=== PATIENT | female | born 2005 | race Caucasian/White ===

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

== ENCOUNTER 2025-10-07 12:28 | Emergency (ER) | payer BC, MEDICAID, SELFPAY ==
--- OUTSIDE RECORDS SUMMARY | 2025-10-05 06:37 | XMS_ITS | Encounter Summary ---
Author Organization [facility] Address [address] [place] [address] Care Team Providers Care Note Specialist Name Role Phone Tatiana Barahona MD Primary Care Provider Reason for Visit * Reason Comments Dental Pain Ear Pain Encounter Details Date Type Department Care Team (Late st Contact Info) Description 10/05/2025 6:37 AM DERMATOPATHOLOGIST - 10/05/2025 7:20 AM [facility] Emergency [facility] Emergency Medicine [address] [place] [address] Hua Walker, DO [address] [place] [address] Dental abscess (Primary Dx) Discharge Disposition: Home or Self Care Social History Tobacco Use Types Packs/Day Years Used Date Smoking Tobacco: Former Cigarettes Passive Smoke Exposure: Yes Smokeless Tobacco: Never Alcohol Use Standard Drinks/Week Comments Not Currently 0 (1 standard drink = 0.6 oz pur e alcohol) per weekend Feeling Safe Answer Date Recorded Within the last year, have y ou been afraid of your partner or ex-partner? No 08/13/2020 Within the last year, have y ou been humiliated or emotionally abused in other ways by your partner or ex-partner? No Within the last year, have y ou been kicked, hit, slapped, or otherwise physically hurt by your partner or ex-partner? No 08/13/2020 Within the last year, have y ou been raped or forced to have any kind of sexual activity by your partner or ex-partner? No 08/13/2020 Financial Resource Strain Answer Date R ecorded How hard is it for you to pa y for the very basics like food, housing, medical care, and heating? Not hard at all 08/13/2020 Food Insecurity Answer Date Recorded Within the past 12 months, y ou worried that your food would run out before you got the money to buy more. Never true 08/13/20 20 Within the past 12 months, t he food you bought just didn't last and you didn't have money to get more. Never true 08/13/2020 Transportation Needs Answer Date Record ed In the past 12 months, has l ack of transportation kept you from medical appointments or from getting medications? Yes 02/2020 In the past 12 months, has l ack of transportation kept you from meetings, work, or from getting things needed for daily living? Yes 08/13/2020 Food Insecurity Answer Date Recorded Do you find you are eating l ess than you should because you can t pay for food? No 10/05/2025 Transportation Needs Answer Date Record ed Have you gone without health care because you didn t have a way to get there? Or worry about transportation for future doctor visits, picker machine operator medication, etc.? No 2024 Housing Stability Answer Date Recorded Do you worry you won t have a steady place to sleep or struggle to pay rent or mortgage? No 10/05/2025 Utility Needs Answer Date Recorded Do you have difficulty payin g for utility costs (electric, water or gas bills)? No 10/05/2025 Medication Needs Answer Date Recorded Have you skipped taking medi cation due to cost or worry you can t afford new medications? No 10/05/2025 Feeling Safe Answer Date Recorded Are you in a relationship wi th someone who hurts you emotionally and/or physically? No 10/05/2025 Comments No Sex and Gender Information Value Date Recorded Sex Assigned at Not on file Legal Sex Female 12:59 PM DERMATOPATHOLOGIST Gender Identity Not on file Sexual Orientation Not on file documented as of this encounter Last Filed Vital Signs Vital Sign Reading Time Taken Comments Blood Pressure 94/66 10/05/2025 7:00 AM DERMATOPATHOLOGIST Pulse 51 10/05/2025 7:00 AM DERMATOPATHOLOGIST Temperature 36.4 C (97.5 F) 10/05/2025 6:38 AM DERMATOPATHOLOGIST Respiratory Rate 18 10/05/2025 6:38 AM DERMATOPATHOLOGIST Oxygen Saturation 98% 10/05/2025 7:00 AM DERMATOPATHOLOGIST Inhaled Oxygen Concentration - - Weight 81.5 kg (179 lb 9.6 oz) 10/05/2025 6:38 A M DERMATOPATHOLOGIST Height 165.1 cm (5' 5 ) 10/05/2025 6:38 AM DERMATOPATHOLOGIST Body Mass Index 29.89 10/05/2025 6:38 AM DERMATOPATHOLOGIST documented in this encounter Functional Status * Functional Assessment Question Answer Date of Assessment Author Ambulation independent 10/05/2025 6:44 AM Meli Poon RN Transferring independent 10/05/2025 6:44 AM Meli Poon RN Toileting independent 10/05/2025 6:44 AM Meli Poon RN * Patient Safety Question Answer Date of Assessment Author Armband, In Place/Activated Identification;Aller gy 10/05/2025 6:44 AM Meli Garza RN * ED Fall Risk Assessment (Yes to any risk = High Fall Risk) Question Answer Date of Assessment Author Age > 70 No 10/05/2025 6:44 AM Meli Garza RN History of Falls d/t Intrinsic Factors in Last 30 Days (visual impairment, weakness, poor coordination) No 10/05/2025 6:44 AM Meli Garza RN Altered Mental Status (Intoxicated or Confused, and Unable to Understand Fall Precautions) No 10/05/2025 6:44 AM Meli Garza RN Nursing Judgement No 10/05/2025 6:4 4 AM Meli Garza RN Impaired Mobility - Ambulates with either: assistive device, unsteady gait, unable to ambulate No 10/05/2025 6:44 AM Meli Garza RN [place] Fall Risk Interventions Stretcher in lowest position and wheels locked;Minimum of one side rail in raised position when pts are in bed, both side rails if clinically indicated;Call light is placed within reach;Keep other personal items within reach;[place] patient to environment;Keep room and unit free from clutter or spills;Educate patient and family to ask for assistance if needed when getting out of bed;Monitor patient activity after administering medications that may increase the risk for fall;Frequent rounding by Emergency Dept staff: (include the 5 P's: Pain, Potty, Positioning, Possessions and Pump (check IV site/equip) 10/05/2025 6:44 AM Meli Garza RN * Quick Assessment Question Answer Date of Assessment Author Airway Patent 10/05/2025 6:40 AM Meli Poon RN Breathing Effort Spontaneous;Non-Labored 10/05/2025 6: 40 AM Meli Garza RN Pulses Palpable Yes 10/05/2025 6:40 AM Meli Bolton RN Skin/Color Mer Rouge;Warm;Dry 10/05/2025 6:40 AM Meli Nelson RN * [place]-Suicide Severity Rating Scale (Past Month) Question Answer Date of Assessment Author 1. Have you wished you were or wished you could go to sleep and not wake up? No 10/05/2025 6:44 AM Meli Garza RN Is this encounter related to suicidal behavior/attempt? No 10/05/2025 6:44 AM Selma Garza RN 2. Have you actually had any thoughts of killing yourself? No 10/05/2025 6:44 AM Meli Garza RN 6. Have you ever done anythi ng, started to do anything, or prepared to do anything to end your life? No 10/05/2025 6:44 AM Meli Garza RN * Stroke Activation/Code Stroke Question Answer Date of Assessment Author Stroke Alert No 10/05/2025 6:40 AM Meli Poon RN * Pain Question Answer Date of Assessment Author Patient complains of pain? Yes 10/05/2025 6:38 AM Meli Garza RN Description: Quality sharp;stabbing 10/05/2025 6:38 AM Meli Garza RN Description: Frequency constant 10/05/2025 6:38 AM Meli Garza RN Location ear;teeth 10/05/2025 6:38 AM Meli Poon RN Pain Rating: Number 0-10 (rest) 7 10/05/2025 6:38 AM Meli Garza RN Pain Assessment Pain Assessment/Number Scale (0-10) 10/05/2025 6:38 AM Meli Garza RN * [place] Coma Scale Question Answer Date of Assessment Author GCS (Total) 15 10/05/2025 6:38 AM Meli Poon RN Best Eye Response 4 10/05/2025 6:38 AM Meli Garza RN Best Verbal Response 5 10/05/2025 6:38 AM C Meli Good RN Best Motor Response 6 10/05/2025 6:38 AM Meli Valenzuela RN * Pain Assessment Question Answer Date of Assessment Author Location: Orientation Left: 10/05/2025 6:38 AM Meli Garza RN Pain Management Interventions unnecessary movement avoided 10/05/2025 6:38 AM Meli Garza RN * SIRS Score Answer Date of Assessment Author 0 10/05/2025 7:11 AM DERMATOPATHOLOGIST QBatch, U ser * BEFAST Question Answer Date of Assessment Author Balance 0 10/05/2025 6:40 AM Meli Poon RN Eyes 0 10/05/2025 6:40 AM Meli Poon RN Face 0 10/05/2025 6:40 AM Meli Poon RN Arms 0 10/05/2025 6:40 AM Meli Poon RN Speech 0 10/05/2025 6:40 AM Meli Poon RN The Rest 0 10/05/2025 6:40 AM Meli Poon RN BEFAST Score Negative 10/05/2025 6:40 AM Meli Poon, NORBERTO * Suicide Risk and Interventions Answer Date of Assessment Author No Risk 10/05/2025 6:44 AM Bill Garza, NORBERTO * Suspected Infection Answer Date of Assessment Author 0 10/05/2025 7:11 AM DERMATOPATHOLOGIST QBatch, U ser * Organ Dysfunction Score Answer Date of Assessment Author 0 10/05/2025 7:11 AM DERMATOPATHOLOGIST QBatch, U ser * Sepsis Score Answer Date of Assessment Author 0 10/05/2025 7:11 AM DERMATOPATHOLOGIST QBatch, U ser * Severe Sepsis Score Answer Date of Assessment Author 0 10/05/2025 7:11 AM DERMATOPATHOLOGIST QBatch, U ser * Septic Shock Score Answer Date of Assessment Author 0 10/05/2025 7:11 AM DERMATOPATHOLOGIST QBatch, U ser * Sepsis Review Score Answer Date of Assessment Author 0 10/05/2025 7:11 AM DERMATOPATHOLOGIST QBatch, U ser * Septic Shock Criteria Answer Date of Assessment Author 0 10/05/2025 7:11 AM DERMATOPATHOLOGIST QBatch, U ser * Severe Pneumonia Score Answer Date of Assessment Author 0 10/05/2025 7:00 AM DERMATOPATHOLOGIST QBatch, U ser * Risk Management / Prevention - Hypoglycemia Question Answer Date of Assessment Author MCM Glucose Score (auto calculated) 0 10/05 7:01 AM DERMATOPATHOLOGIST QBatch, User * Adult Acuity Scoring Question Answer Date of Assessment Author Sofa Score(auto calculated) 0 10/05/2025 7: 01 AM DERMATOPATHOLOGIST QBatch, User Readmission Risk Score 0 10/05/2025 7:20 AM Liz Martin RN [id number] Score (Used for patients with atrial fibrillation) 1 10/05/2025 7:20 AM Liz Cardenas RN HAS-BLED Score (Used for pat ients with atrial fibrillation) 0 10/05/2025 7:20 AM Ben Martin RN * Functional Assessment Question Answer Date of Assessment Author Ambulation independent 10/05/2025 6:44 AM Meli Poon RN Transferring independent 10/05/2025 6:44 AM Meli Poon RN Toileting independent 10/05/2025 6:44 AM Meli Poon, NORBERTO * Patient Safety Question Answer Date of Assessment Author Armband, In Place/Activated Identification;Aller gy 10/05/2025 6:44 AM Meli Garza, NORBERTO * Stroke Activation/Code Stroke Question Answer Date of Assessment Author Stroke Alert No 10/05/2025 6:40 AM Meli Poon RN * [place] Coma Scale Question Answer Date of Assessment Author GCS (Total) 15 10/05/2025 6:38 AM Meli Poon RN Best Eye Response 4 10/05/2025 6:38 AM Meli Garza RN Best Verbal Response 5 10/05/2025 6:38 AM Meli Romero RN Best Motor Response 6 10/05/2025 6:38 AM CS Meli Callahan, NORBERTO * BEFAST Question Answer Date of Assessment Author Balance 0 10/05/2025 6:40 AM Meli Poon RN Eyes 0 10/05/2025 6:40 AM Meli Poon RN Face 0 10/05/2025 6:40 AM Meli Poon RN Arms 0 10/05/2025 6:40 AM Meli Poon RN Speech 0 10/05/2025 6:40 AM Meli Poon RN The Rest 0 10/05/2025 6:40 AM Meli Poon RN BEFAST Score Negative 10/05/2025 6:40 AM Meli Poon RN documented as of this encounter Mental Status * Patient Safety Question Answer Entry Date Author Armband, In Place/Activated Identification;Allerg y 10/05/2025 6:44 AM Meli Garza RN * Quick Assessment Question Answer Entry Date Author Level of Consciousness Awake/Alert;Orishira barbara X 4 10/05/2025 6:40 AM Meli Garza RN * [place]-Suicide Severity Rating Scale (Past Month) Question Answer Entry Date Author 1. Have you wished you were or wished you could go to sleep and not wake up? No 10/05/2025 6:44 AM Meli Garza RN Is this encounter related to suicidal behavior/attempt? No 10/05/2025 6:44 AM Selma Garza, NORBERTO 2. Have you actually had any thoughts of killing yourself? No 10/05/2025 6:44 AM Meli Garza, RN 6. Have you ever done anythi ng, started to do anything, or prepared to do anything to end your life? No 10/05/2025 6:44 AM Meli Garza, NORBERTO * Stroke Activation/Code Stroke Question Answer Entry Date Author Stroke Alert No 10/05/2025 6:40 AM Meli Poon RN * [place] Coma Scale Question Answer Entry Date Author GCS (Total) 15 10/05/2025 6:38 AM Meli Poon RN Best Eye Response 4 10/05/2025 6:38 AM Meli Garza RN Best Verbal Response 5 10/05/2025 6:[address] Meli Reaves RN Best Motor Response 6 10/05/2025 6:38 AM CS T Meli Reaves RN * BEFAST Question Answer Entry Date Author Balance 0 10/05/2025 6:40 AM Meli Poon RN Eyes 0 10/05/2025 6:40 AM Meli Poon RN Face 0 10/05/2025 6:40 AM Meli Poon RN Arms 0 10/05/2025 6:40 AM Meli Poon RN Speech 0 10/05/2025 6:40 AM Meli Poon RN The Rest 0 10/05/2025 6:40 AM Meli Poon RN BEFAST Score Negative 10/05/2025 6:40 AM Meli Poon RN * Total Answer Entry Date Author 0 10/05/2025 6:44 AM Bill Garza RN * Suicide Risk and Interventions Answer Entry Date Author No Risk 10/05/2025 6:44 AM Bill Garza RN documented in this encounter Discharge Instructions * Discharge Instructions* Hua Walker DO - 10/05/2025 7:13 AM DERMATOPATHOLOGIST Dental abscess. Please take your antibiotics. Please take them to completion. Please return if you cannot open your mouth. Please return if your face swells. Please return if you cannot swallow. Please return if you have persistent fevers. Please do not drive while taking the pain medication. Please do not take the pain medication with alcohol. ATOPATHOLOGIST * Attachments The following attachments cannot be sent through Care Everywhere. * Tooth: Abscessed (Vietnamese) documented in this encounter Medications at Time of Discharge clindamycin HCL (CLEOCIN) 300 mg Capsule Take 1 Capsule (300 mg) by mouth 3 times daily for 10 days. 30 Capsule 5 10/15/19 26 HYDROcodone-aceta minophen (NORCO) 5-325 mg tabletIndications :Dental abscess Take 1 Tablet by mouth every 6 hours as needed for Pain. Max Daily Amount: 4 Tablets 10 Tablet 5 Ethinyl Estradiol-Norelge rené 150-35 mcg/24 hr Patch Weekly PATCH Apply 1 Patch to skin as directed see administration instructions. 3 Patch 12 5 buPROPion (WELLBUTRIN) 75 mg tablet Take 75 mg by mouth 2 times daily. busPIRone (BUSPAR) 15 mg TabletIndications :Anxiety Take 1 Tablet (15 mg) by mouth 3 times daily as needed for Anxiety. 90 Tablet 1 5 tirzepatide, weight loss, (Zepbound) 2.5 mg/0.5 mL Pen InjectorIndicatio ns:Obesity (BMI 30.0-34.9) Inject 0.5 mL (2.5 mg) by subcutaneous injection every 7 days. 2 mL 2 5 polyethylene glycol 3350 (MIRALAX) 17 gram/dose PowderIndications :Chronic constipation Take 1 Scoop (17 Grams) by mouth daily. Dissolve in 8 ounces of fluid and drink entire liquid 527 Gram 1 5 orphenadrine (NORFLEX) 100 mg Extended Release tabletIndications :muscle cramps Take 1 Tablet (100 mg) by mouth 2 times daily. 10 Tablet 3 docusate sodium (COLACE) 100 mg capsuleIndication s:Chronic constipation Take 1 Capsule (100 mg) by mouth 2 times daily. 60 Capsule 1 3 FLUoxetine (PROzac) 10 mg capsuleIndication s:Anxiety state Take 1 Capsule (10 mg) by mouth daily. 30 Capsule 1 3 documented as of this encounter ED Notes * Meli Reaves RN - 10/05/2025 6:43 AM CST Mery Smith 20 y.o. female, arrived to the ED via TRANSPORTATION: private vehicle for complaints of dental pain with left ear pain, per patient was seen at dentist with in the last week and shortlyafterwards began having left upper dental pain, has appointment 10/06/25 with primary, last night left ear started hurting, rates pain 7/10 constant sharp and stabbing in left ear, slight swelling toleft cheek. Per patient took OTC ibuprofen with no relief. Chief Complaint Patient presents with Dental Pain Ear Pain . Vitals taken, patient placed on monitor, clothing removed as needed per policy, privacy provided to patient. Respiratory: WDL - Regular rhythm, symmetrical chest expansion, no dyspnea , Cardiac/Circulatory: WDL - No numbness or tingling, no chest pain , Skin: WDL - Normal color for ethnicity, skin intact, patient is Alert and Oriented x4, pain scale: 7/10, findings; bleeding: without any bleeding noted. Behavior during evaluation: appropriate. Belongings secured, patient Weapons assessment: denied possession of any weapons or firearms at this time. Patient comforted, all questions answered to the best of the staff's ability, education performed, and left patient in the room with the call light in reach, bed in lowest position, wheels locked, side rails up. ATOPATHOLOGIST * Hua Walker, - 10/05/2025 6:27 AM CST Images from the original note were not included. 10/05/25 7:10 AM HISTORY OF PRESENT ILLNESS 20-year-old female with poor dentition is here for concern of a dental abscess. She has had 1 before. She was told that she needs to have a root canal of this tooth but is unable to do so at this time. She does have a dentist in [place] but she would like to find a new dentist. She has got no fevers or bodyaches. She can open her mouth. She has some referred pain down through her jaw. Dental Pain Ear Pain PAST MEDICAL HISTORY REVIEWED MEDICAL: Patient has a past medical history of Anxiety (A year ago), GERD (gastroesophageal reflux disease),and GERD (gastroesophageal reflux disease). SURGICAL: Patient has a past surgical history that includes induced (08/2022). ALLERGIES Penicillins PHYSICAL EXAM INITIAL VS BP: 98/68 (10/05/25637), Heart Rate: 87 bpm (10/05/25637), Resp: 18 (10/05/25637), Pulse: (not recorded), Temp: 97.5 ??F (36.4 ??C) (10/05/25637), Temp src: Temporal (10/05/25637), SpO2: 98% (10/05/25637), Height: 5' 5 (165.1 cm) (10/05/25637), Weight: 81.5 kg (179 lb 9.6 oz) (10/05/25637), BMI (Calculated): (!) 29.9 (10/05/25637) Patient's last menstrual period was 08/31/2025(approximate). Physical Exam Vitals and nursing note reviewed. Constitutional: General: She is not in acute distress. Appearance: Normal appearance. She is not ill-appearing, toxic-appearing or diaphoretic. HENT: Head: Normocephalic and atraumatic. Mouth/Throat: Dentition: Abnormal dentition. Dental tenderness, dental caries and dental abscesses present. Tongue: No lesions. Tongue does not deviate from midline. Pharynx: Oropharynx is clear. Uvula midline. Tonsils: No tonsillar abscesses. Comments: Likely dental abscess with swelling of the front left incisor. She has a second tooth growing out of the same spot. She says that this has been there since she was a child and it probably needs to be removed. Cardiovascular: Rate and Rhythm: Normal rate. Pulmonary: Effort: Pulmonary effort is normal. Musculoskeletal: General: Normal range of motion. Skin: General: Skin is warm and dry. Capillary Refill: Capillary refill takes less than 2 seconds. Neurological: Mental Status: She is alert. DIAGNOSTICS LAB: No data to display RADIOLOGY: No orders to display EKG: PROCEDURES Procedures MEDICAL DECISION MAKING AND PLAN OF CARE Medical Decision Making Dental abscess. Will give her a prescription for clindamycin she has an amoxicillin allergy. There is no trismus. No Lazaro's angina. No facial swelling. No cellulitis. Will place the patient on clindamycin and give her some pain medicine to she can see a dentist. Clinical Scoring & Consults . New Prescriptions for this Encounter CLINDAMYCIN HCL (CLEOCIN) 300 MG CAPSULE Take 1 Capsule (300 mg) by mouth 3 times daily for 10 days. HYDROCODONE-ACETAMINOPHEN (NORCO) 5-325 MG TABLET Take 1 Tablet by mouth every 6 hours as needed for Pain. Max Daily Amount: 4 Tablets LAST VS BP: 98/68 (10/05/25637), Heart Rate: 87 bpm (10/05/25637), Resp: 18 (10/05/25637), Pulse: (not recorded), Temp: 97.5 ??F (36.4 ??C) (10/05/25637), Temp src: Temporal (10/05/25637), SpO2: 98% (10/05/25637) CLINICAL IMPRESSION Diagnosis Diagnosis Comment Added By Time Added Dental abscess [K04.7] Hua Walker DO 10/05/2025 7:13 AM DISPOSITION, EDUCATION AND MEDICATION RECONCILIATION Medications reconciled. See after visit summary for patient education on discharged patients. ED Disposition ED Disposition Discharge Condition Stable User Hua Walker DO Date/Time Sun Oct 05, 2025 7:13 AM Comment -- ATTESTATION STATEMENTS Diagnosis Diagnosis Comment Added By Time Added Dental abscess [K04.7] Hua Walker DO 10/05/2025 7:13 AM ATOPATHOLOGIST documented in this encounter Miscellaneous Notes * Gen AI JOSE L - GENERATIVE AI HANDOFF NOTE - 10/05/2025 9:34 AM CST ## ER_course: ## # DIAGNOSIS: Dental abscess. The patient, Mery Smith, a 20-year-old female, presented with complaints of dental pain and left ear pain. She reported a constant sharp and stabbing pain in the left ear, rated 7/10, with slight swelling to the left cheek. The patient has a history of poor dentition and was previously informed of the need for a root canal. She has no fever or body aches and can open her mouth. Examination revealed abnormal dentition with dental tenderness, caries, and abscesses, particularly swelling of the front left incisor. # During the ER visit, the patient was diagnosed with a dental abscess. There was no trismus, Lazaro's angina, facial swelling, or cellulitis noted. The patient was prescribed clindamycin due to an amoxicillin allergy and given hydrocodone-acetaminophen for pain management. ## Follow_up_orders: ## # The patient was started on new prescriptions: Clindamycin HCL (Cleocin) 300 mg capsule to be taken 1 capsule by mouth 3 times daily for 10 days, and Hydrocodone-Acetaminophen ([place]) 5-325 mg tablet to be taken 1 tablet by mouth every 6 hours as needed for pain, with a maximum daily amount of 4 tablets. # The patient is advised to follow up with a dentist for further evaluation and treatment of the dental abscess. ## Home_Situation: ## # No specific factors potentially impairing follow-up care were noted in the ER documentation. The patient arrived via private vehicle, indicating some level of transportation access. ATOPATHOLOGIST documented in this encounter Plan of Treatment Upcoming Encounters Date Type Department Care Team (Late st Contact Info) Description 10/20/2025 3:00 PM DERMATOPATHOLOGIST Office Visit [facility] [address] [place] [address] January, [facility] [address] [place] [address] documented as of this encounter Visit Diagnoses Diagnosis Dental abscess- Primary Periapical abscess without sinus documented in this encounter Care Teams Note Specialist Relationship Specialty Start Date End Date Tatiana Barahona MD [address] [address] PCP - General Family Practice 08/17/16 documented as of this encounter
--- OUTSIDE RECORDS SUMMARY | 2025-10-06 17:00 | XMS_ITS | Encounter Summary ---
Author Organization [facility] Address [address] [place] [address] Care Team Providers Care Splitting Machine Feeder Name Role Phone Tatiana Barahona MD Primary Care Provider [phone] Reason for Visit * Reason Comments Ear Pain Encounter Details Date Type Department Care Team (Late st Contact Info) Description 10/06/2025 5:00 PM ARMORED CABLE MACHINE OPERATOR Office Visit [facility] Medicine [address] [address] Starr Tobin, [facility] [address] [address] Left acute otitis media (Primary Dx); Other infective acute otitis externa of left ear Social History Tobacco Use Types Packs/Day Years [...] worry about transportation for future doctor visits, cook pickled meat medication, etc.? No 2024 Housing Stability Answer [...] on file Legal Sex Female 12:59 PM ARMORED CABLE MACHINE OPERATOR Gender Identity Not on file Sexual Orientation Not on file documented as of this encounter Last Filed Vital Signs Vital Sign Reading Time Taken Comments Blood Pressure 112/74 10/06/2025 4:42 PM ARMORED CABLE MACHINE OPERATOR Pulse 71 10/06/2025 4:42 PM ARMORED CABLE MACHINE OPERATOR Temperature 36.9 C (98.5 F) 10/06/2025 4:42 PM ARMORED CABLE MACHINE OPERATOR Respiratory Rate 16 10/06/2025 4:42 PM ARMORED CABLE MACHINE OPERATOR Oxygen Saturation 100% 10/06/2025 4:42 PM ARMORED CABLE MACHINE OPERATOR Inhaled Oxygen Concentration - - Weight 82.5 kg (181 lb 12.8 oz) 10/06/2025 4:42 PM ARMORED CABLE MACHINE OPERATOR Height 165.1 cm (5' 5 ) 10/06/2025 4:42 PM ARMORED CABLE MACHINE OPERATOR Body Mass Index 30.25 10/06/2025 4:42 PM ARMORED CABLE MACHINE OPERATOR documented in this encounter Functional Status * PHQ-2 Total Answer Date of Assessment Author 0 10/06/2025 4:44 PM ARMORED CABLE MACHINE OPERATOR Jonatan Kapadia * PHQ-2 Questions Question Answer Date of Assessment Author Little interest or pleasure in doing things 0 10/06/2025 4:44 PM ARMORED CABLE MACHINE OPERATOR Macario Miramontes Feeling down, depressed, or hopeless 0 10/06/2025 4:44 PM ARMORED CABLE MACHINE OPERATOR Erlinda Miramontesst hay Khan PHQ-2 Total 0 10/06/2025 4:44 PM ARMORED CABLE MACHINE OPERATOR Jonatan Atkins documented as of this encounter Mental Status * PHQ-9 Total Answer Entry Date Author 0 10/06/2025 4:44 PM ARMORED CABLE MACHINE OPERATOR Jonatan Kapadia * PHQ-2 Total Answer Entry Date Author 0 10/06/2025 4:44 PM ARMORED CABLE MACHINE OPERATOR Jonatan Kapadia * Score - Total of question 1 and 2 Answer Entry Date Author 0 10/06/2025 4:44 PM ARMORED CABLE MACHINE OPERATOR Jonatan Kapadia * PHQ-2 Questions Question Answer Entry Date Author Little interest or pleasure in doing things 0 10/06/2025 4:44 PM ARMORED CABLE MACHINE OPERATOR Fe Tryst an Bill Feeling down, depressed, or hopeless 0 10/06/2025 4:44 PM ARMORED CABLE MACHINE OPERATOR Erlinda Miramontesst hay Khan PHQ-2 Total 0 10/06/2025 4:44 PM ARMORED CABLE MACHINE OPERATOR Jonatan Atkins documented in this encounter Progress Notes * Starr Tobin, VERONIKA - 10/06/2025 4:44 PM CST [facility] [place] 10/06/2025 Subjective: Mery Smith is a 20 y.o. female who comes today for evaluation of Ear Pain . History of Present Illness The patient is a 20-year-old female who presents for evaluation of ear issues. She reports experiencing pain in her left ear, accompanied by drainage and bleeding, which began on10/05/2025. The pain has since subsided following the drainage. She describes the drainage as greenin color and notes that it has been causing discomfort in her jaw. She also mentions a sensation ofhearing her own blood flow. She has not experienced any fevers. [facility] on 10/[facility]/2025, where she was prescribed antibiotics. She has been managing the drainage by keeping her head down and using gauze and toilet paper. She has a history of a tooth abscess but currently does not experience any tooth pain. Review of Systems Constitutional: Negative for chills, fever and malaise/fatigue. HENT: Positive for ear discharge and ear pain. Negative for congestion and sore throat. Eyes: Negative for blurred vision. Respiratory: Negative for cough and shortness of breath. Cardiovascular: Negative for chest pain. Gastrointestinal: Negative for abdominal pain, constipation, diarrhea, nausea and vomiting. Genitourinary: Negative for dysuria and urgency. Musculoskeletal: Negative for joint pain and myalgias. Neurological: Negative for dizziness and headaches. All other systems reviewed and are negative. Objective: Vitals: 10/06/25 1642 Temp: 98.5 ??F (36.9 ??C) Pulse: 71 BP: 112/74 Resp: 16 SpO2: 100% Physical Exam Constitutional: General: She is not in acute distress. Appearance: Normal appearance. She is not ill-appearing or toxic-appearing. HENT: Head: Normocephalic and atraumatic. Right Ear: Tympanic membrane normal. Left Ear: Drainage, swelling and tenderness present. Ears: Comments: Canal swollen and draining, unable to even see back to TM Nose: Nose normal. Mouth/Throat: Mouth: Mucous membranes are moist. Eyes: Extraocular Movements: Extraocular movements intact. Pupils: Pupils are equal, round, and reactive to light. Neck: Vascular: No JVD. Cardiovascular: Rate and Rhythm: Normal rate and regular rhythm. Pulses: Normal pulses. Heart sounds: Normal heart sounds. Pulmonary: Effort: Pulmonary effort is normal. No respiratory distress. Breath sounds: Normal breath sounds and air entry. No decreased air movement. No wheezing, rhonchi or rales. Abdominal: General: Abdomen is flat. Bowel sounds are normal. Palpations: Abdomen is soft. Tenderness: There is no abdominal tenderness. Musculoskeletal: General: Normal range of motion. Cervical back: Normal range of motion and neck supple. Skin: General: Skin is warm and dry. Neurological: General: No focal deficit present. Mental Status: She is alert and oriented to person, place, and time. Psychiatric: Mood and Affect: Mood normal. Behavior: Behavior normal. Past medical history, surgical history and social history reviewed. Past Medical History: Diagnosis Date Anxiety A year ago GERD (gastroesophageal reflux disease) GERD (gastroesophageal reflux disease) Procedures Assessment/Plan: ICD-10-CM ICD-9-CM 1. Left acute otitis media H66.92 382.9 ciprofloxacin HCl (CILOXAN) 0.3 % solution 2. Other infective acute otitis externa of left ear H60.392 380.10 ciprofloxacin HCl (CILOXAN) 0.3 % solution Assessment & Plan 1. Left ear infection: - Symptoms include pain, drainage, and bleeding from the left ear, which started yesterday. The patient reports significant pain that has slightly improved after drainage. There is no fever reported. - Examination reveals significant swelling and suspected eardrum perforation. - The patient is currently on clindamycin due to a penicillin allergy, which should cover the ear infection. The patient is advised to continue taking clindamycin as prescribed. - Ibuprofen 800 mg three times a day for 3 days is recommended for pain management, especially before bed. A prescription for cipro eardrops, has been provided. The patient is instructed to administer 4 drops to the left ear twice daily for 10 days. The patient is instructed to avoid submerging herhead under water for approximately 3 months to allow the eardrum to heal. If symptoms worsen, do not improve, or if the patient develops a fever, she should return for further evaluation. Starr JACKSON This note was automatically generated by a Generative AI technology ([employer]), reviewed, edited, and finalized by Starr Tobin. The author of this note, patient (or authorized artists' booking representative), and all other persons present consent to the audio recording of this visit for charting documentation purposes. Depression Screen Positive: PHQ-2 score >= 3 or PHQ-9 score >= 9 PHQ-2 Total: 0 (10/06/2025 4:44 PM) DEPRESSION PLAN OF CARE Her depression screen was negative. (PHQ2 <3, PHQ9 <10, [place] <11) RED CABLE MACHINE OPERATOR documented in this encounter Plan of Treatment Upcoming Encounters Date Type Department Care Team (Late st Contact Info) Description 10/20/2025 3:00 PM ARMORED CABLE MACHINE OPERATOR Office Visit [facility] Medicine [place] [address] [place] [address] Cannonjanuary, VERONIKA [address] [place] [phone] documented as of this encounter Visit Diagnoses Diagnosis Left acute otitis media- Primary Unspecified otitis media Other infective acute otitis externa of left ear documented in this encounter Care Teams Splitting Machine Feeder Relationship Specialty Start Date End Date Tatiana Barahona MD [address] [phone] PCP - General Family Practice 08/17/16 documented as of this encounter
--- OUTSIDE RECORDS SUMMARY | 2025-10-07 12:34 | XMS_ITS | Encounter Summary ---
Author Organization [facility] Address [address] [place] [address] Care Team Providers Care Rn First Assistant Name Role Phone Tatiana Barahona MD Primary Care Provider Encounter Details Date Type Department Care Team (Late st Contact Info) Description 10/02/2025 Patient Self-Triage [facility] [address] [place] [phone] Social History Tobacco Use Types Packs/Day Years [...] things needed for daily living? Yes 08/13/2020 Feeling Safe Answer Date Recorded Are you in a relationship wi th someone who hurts you emotionally and/or physically? No 05/16/2023 Comments No Sex and Gender Information Value Date Recorded Sex Assigned at Not on file Legal Sex Female 12:59 PM ANTHROPOLOGY DEPARTMENT CHAIR Gender Identity Not on file Sexual Orientation Not on file documented as of this encounter Plan of Treatment Upcoming Encounters Date Type Department Care Team (Late st Contact Info) Description 10/20/2025 3:00 PM ANTHROPOLOGY DEPARTMENT CHAIR Office Visit [facility] Medicine [place] [address] [place] [phone] January, [facility] [address] [place] [phone] documented as of this encounter Visit Diagnoses Not on filedocumented in this encounter Care Teams Rn First Assistant Relationship Specialty Start Date End Date Tatiana Barahona MD [address] [facility] [address] [place] [address] PCP - General Family Practice 08/17/16 documented as of this encounter
--- OUTSIDE RECORDS SUMMARY | 2025-10-07 12:34 | XMS_ITS | Encounter Summary ---
Author Organization [facility] Address [address] [place] [address] Care Team Providers Care Nuclear Equipment Operator Name Role Phone Tatiana Barahona MD Primary Care Provider Reason for Visit * Reason Onset Date Comments Home Monitoring Video Visit 10/06/2025 Nkechi chopra calling patient twice to start her vide visit she has today wit SENIOR PRODUCER. No answer left a vm. Encounter Details Date Type Department Care Team (Late st Contact Info) Description 10/06/2025 Telephone [facility] Family Medicine [address] [address] Supriya Lopez FNP [address] [place] [address] Home Monitoring Video Visit (Tried calling patient twice to start her vide visit she has today wit SENIOR PRODUCER. No answer left a vm. ) Social History Tobacco Use Types Packs/Day Years [...] worry about transportation for future doctor visits, parts picker medication, etc.? No 2024 Housing Stability Answer [...] on file Legal Sex Female 12:59 PM TRANSITION MANAGER Gender Identity Not on file Sexual Orientation Not on file documented as of this encounter Miscellaneous Notes * Telephone Encounter - Ron He LPN - 10/06/2025 3:05 PM TRANSITION MANAGER 10/06/2025 3:07 PM Tried calling patient times 2 to intake for her video visit this afternoon with Supriya Lopez NP. Noanswer at either time. Left a vm explaining who I was and why I was calling. If patient callback after 1515 they can r/s for another day. Ron POLO SITION MANAGER documented in this encounter Plan of Treatment Upcoming Encounters Date Type Department Care Team (Late st Contact Info) Description 10/20/2025 3:00 PM TRANSITION MANAGER Office Visit [facility] Medicine [place] [address] [place] [phone] January, [facility] [address] [place] [phone] documented as of this encounter Visit Diagnoses Not on filedocumented in this encounter Care Teams Nuclear Equipment Operator Relationship Specialty Start Date End Date Tatiana Barahona MD [address] [facility] [address] [place] [address] PCP - General Family Practice 08/17/16 documented as of this encounter
--- OUTSIDE RECORDS SUMMARY | 2025-10-07 12:34 | XMS_ITS | Clinical Summary ---
Author Organization [facility] Address [address] [facility] [address] Patrick: Epic Prelude ADT [place]ANI [place] [address] Care Team Providers Care Cellophane Bath Mixer Name Role Phone Tatiana Barahona MD Primary Care Provider Allergies Active Allergy Reactions Criticality Noted Date Comments Penicillins Rash Low 09/01/2008 Medications FLUoxetine (PROzac) 10 mg capsuleIndicatio ns:Anxiety state Take 1 Capsule (10 mg) by mouth daily. 30 Capsule 1 02/18/20 23 Active docusate sodium (COLACE) 100 mg capsuleIndicatio ns:Chronic constipation Take 1 Capsule (100 mg) by mouth 2 times daily. 60 Capsule 1 03/15/20 23 Active orphenadrine (NORFLEX) 100 mg Extended Release tabletIndication s:muscle cramps Take 1 Tablet (100 mg) by mouth 2 times daily. 10 Tablet 05/16/20 23 Active buPROPion (WELLBUTRIN) 75 mg tablet Take 75 mg by mouth 2 times daily. Active busPIRone (BUSPAR) 15 mg TabletIndication s:Anxiety Take 1 Tablet (15 mg) by mouth 3 times daily as needed for Anxiety. 90 Tablet 1 09/18/20 25 Active tirzepatide, weight loss, (Zepbound) 2.5 mg/0.5 mL Pen InjectorIndicati ons:Obesity (BMI 30.0-34.9) Inject 0.5 mL (2.5 mg) by subcutaneous injection every 7 days. 2 mL 2 09/18/20 25 Active polyethylene glycol 3350 (MIRALAX) 17 gram/dose PowderIndication s:Chronic constipation Take 1 Scoop (17 Grams) by mouth daily. Dissolve in 8 ounces of fluid and drink entire liquid 527 Gram 1 09/18/20 25 Active Ethinyl Estradiol-Norelg estrom 150-35 mcg/24 hr Patch Weekly PATCH Apply 1 Patch to skin as directed see administration instructions. 3 Patch 12 09/19/20 25 Active clindamycin HCL (CLEOCIN) 300 mg Capsule Take 1 Capsule (300 mg) by mouth 3 times daily for 10 days. 30 Capsule 10/05/20 026 Active HYDROcodone-acet aminophen (NORCO) 5-325 mg tabletIndication s:Dental abscess Take 1 Tablet by mouth every 6 hours as needed for Pain. Max Daily Amount: 4 Tablets 10 Tablet 10/05/20 25 Active Additional Information Patient not taking.Reported on 10/06/2025 ciprofloxacin HCl (CILOXAN) 0.3 % solutionIndicati ons:Left acute otitis media,Other infective acute otitis externa of left ear Use 4 drops to left ear twice daily x 10 days 5 mL 10/06/20 25 Active medroxyPROGESTER one (DEPO-PROVERA) 150 mg/mL SuspensionIndica tions:Encounter for initial prescription of injectable contraceptive Inject 1 mL (150 mg) by intramuscular injection every 90 days. 1 mL 3 03/14/20 025 Discontin ued(Alter leland therapy prescribe d) polyethylene glycol 3350 (MIRALAX) 17 gram/dose PowderIndication s:Chronic constipation Take 1 Scoop (17 Grams) by mouth daily. Dissolve in 8 ounces of fluid and drink entire liquid 527 Gram 1 03/15/20 025 Discontin ued(Reord er) busPIRone (BUSPAR) 10 mg tablet Take 10 mg by mouth 3 times daily. 025 Discontin ued(Dose/ form adjustmen t) Drospirenone-Eth inyl estradiol 3-0.02 mg tabletIndication s:Encounter for oral contraception initial prescription Take 1 Tablet by mouth daily. 28 Tablet 12 09/18/20 25 025 Discontin ued(Alter leland therapy prescribe d) Active Problems Problem Noted Date Diagnosed Date Recurrent major depressive disorder, in partial remission 09/18/2025 Environmental tobacco smoke exposure 02/07/2016 Reactive airway disease 12/17/2009 GERD (gastroesophageal reflux disease) 0 Encounters Date Type Department Care Team Description 10/06/2025 5:00 PM HEAD MILLER Office Visit [place] [address] [facility] [address] [place] [phone] Starr Tobin FNP Left acute otitis media (Primary Dx); Other infective acute otitis externa of left ear 10/06/2025 Telephone [facility] [address] [place] [phone] Supriya Lopez FNP Home Monitoring Video Visit (Tried calling patient twice to start her vide visit she has today wit MANIPULATIVE THERAPY SPECIALIST. No answer left a vm. ) 10/05/2025 6:37 AM HEAD MILLER - 10/05/2025 7:20 AM HEAD MILLER Emergency [facility] Emergency Medicine [address] [facility] [address] [place] [address] Hua Walker DO Dental abscess (Primary Dx) Discharge Disposition: Home or Self Care 10/05/2025 Travel 10/02/2025 Patient Self-Triage [facility] [address] [place] [address] 09/23/2025 External Device Data STL ABSTRACTION Provider, Abstract 09/23/2025 External Device Data STL ABSTRACTION Provider, Abstract 09/23/2025 Orders Only [facility] [address] [place] [address] Provider, Abstract 09/19/2025 Orders Only [facility] [address] [place] [phone] Cannonjanuary, ESCROW CLERK 09/18/2025 3:40 PM HEAD MILLER Office Visit [facility] [address] [place] [address] Cannonjanuary, Encounter to establish care (Primary Dx); Encounter for immunization; Recurrent major depressive disorder, in partial remission; Anxiety; Obesity (BMI 30.0-34.9); Chronic constipation; Encounter for oral contraception initial prescription from Last 3 Months Immunizations Immunization Administration Dates Next Due (ADACEL/BOOSTRIX)(10 YR UP) TDAP VACCINE, 0.5ML, IM 12/21/2009 (GARDASIL 9)(9-45 YRS) HUMAN PAPILLOMAVIRUS VACCINE, TYPES 6, 11, 16, 18, 31, 33, 45, 52, 58, NONAVALENT (9VHPV), 2 OR 3 DOSE, IM 03/15/2018 (INFANRIX)(6 WKS-6 YRS) DIPT HERIA, TETANUS TOXOIDS, AND ACCELLULAR PERTUSSIS VACCINE (DTAP), 0.5 ML IM 06/05/2009 (IPOL)(6 WKS AND UP) POLIOVI SUSANNAH VACCINE, INACTIVATED (IPV), 3 DOSE, SUBCUT OR IM 12/02/2009 (M-M-R II/PRIORIX)(12 MO UP) MEASLES, MUMPS AND RUBELLA VIRUS VACCINE, 0.5 ML IM/SUBCUT 12/02/2009 (VARIVAX)(12 MOS UP)VARICELL A VIRUS VACCINE (PF) 0.5 ML, SUB CUT 12/02/2009 Dt Dtp Dtap Vaccine 06/05/2009, 7,2005,05/27 HIB, Unspecified Formulation 10/31/2006,10/05/20 05,2005 HPV 9 Vaccine 3-dose PF IM VFC 08/31/2016 Hepatitis B Vaccine 10/31/2006, 5,2005,03/12 INFLUENZA VACCINE TRIVALENT SPLIT VIRUS, (6 MOS UP), 0.5ML (PF), IM 09/18/2025 IPV/OPV 10/31/2006,2005,2005 Influenza Vaccine Quad Split 3+ Yrs PF IM VFC 08/31/2016,07/16/2014 Influenza Vaccine Split 3+ Y rs PF IM VFC 07/26/2012,08/30/2010 Meningococcal A Conjugate Vaccine IM 05/11/2017 Family History Medical History Relation Name Comments Heart Disease Father Diabetes Paternal Grandmother Relation Name Status Comments Father Paternal Grandmother Social History Tobacco Use Types Packs/Day Years Used Date Smoking Tobacco: Former Cigarettes Passive Smoke Exposure: Yes Smokeless Tobacco: Never Tobacco Cessation:Counseling Given: No Alcohol Use Standard Drinks/Week Comments Not Currently [...] worry about transportation for future doctor visits, steel pickler medication, etc.? No 2024 Housing Stability Answer [...] on file Legal Sex Female 12:59 PM HEAD MILLER Gender Identity Not on file Sexual Orientation Not on file Last Filed Vital Signs Vital Sign Reading Time Taken Comments Blood Pressure 112/74 10/06/2025 4:42 PM HEAD MILLER Pulse 71 10/06/2025 4:42 PM HEAD MILLER Temperature 36.9 C (98.5 F) 10/06/2025 4:42 PM HEAD MILLER Respiratory Rate 16 10/06/2025 4:42 PM HEAD MILLER Oxygen Saturation 100% 10/06/2025 4:42 PM HEAD MILLER Inhaled Oxygen Concentration - - Weight 82.5 kg (181 lb 12.8 oz) 10/06/2025 4:42 PM HEAD MILLER Height 165.1 cm (5' 5 ) 10/06/2025 4:42 PM HEAD MILLER Body Mass Index 30.25 10/06/2025 4:42 PM HEAD MILLER Plan of Treatment Upcoming Encounters Date Type Department Care Team (Late st Contact Info) Description 10/20/2025 3:00 PM HEAD MILLER Office Visit [facility] Medicine [place] [address] [place] [address] Cannonjanuary, [facility] [address] [place] [address] Health Maintenance Due Date Last Done Comments DTAP/TDAP/TD VACCINES (6 - Tdap) 2016 12/21/2009, 06/05/2009, 06/05/2009, Additional history exists CHLAMYDIA SCREENING (ANNUAL) 11-24 YEARS 02/18/2024 02/17/2023, 01/03/2023, 08/31/2022 Preventative Visit-Managed Medicaid 2024 05/11/2017, 08/31/2016, 07/26/2012, Additional history exists HEPATITIS B VACCINES Completed 10/31/2006, 2005, 2005, Additional history exists HPV VACCINES Completed 03/15/2018, 08/31/2016 INFLUENZA VACCINE Completed 09/18/2025, , 07/16/2014, Additional history exists Procedures Procedure Name Priority Date/Time Associated Diagnosis Comments POC , URINE Routine 09/18/2025 4:30 PM HEAD MILLER Encounter for oral contraception initial prescription VAGINOSIS/VAGINITI S PANEL PLUS Routine 02/17/2023 2:08 PM CDT Dysuria from Last 3 Months or Most Recently Relevant to Health Maintenance Results * POC , URINE (09/18/2025 4:30 PM HEAD MILLER) HCG QUAL URINE POC Negative Negative, Indeterminate [facility] KIT QC POC Pass Pass [facility] KIT LOT NUMBER POC [id number] [facility] KIT EXP DATE POC 12/17/2026 [facility] Urine 09/18/2025 4:30 PM HEAD MILLER January ESCROW CLERK POINT OF CARE TESTING Final Resu lt [facility] CLIA# [id number] [address] [place] [address] * VAGINOSIS/VAGINITIS PANEL PLUS (02/17/2023 2:08 PM CDT) BACTERIAL VAGINOSIS NEGATIVE NEGATIVE [facility] ABBY SPECIES NOT DETECTED NOT DETECTED [facility] ABBY GLABRATA NOT DETECTED NOT DETECTED [facility] Comment: Abby species C. albicans, C. tropicalis, C. parapsilosis, and/or C. dubliniensis can be detected, but not differentiated, in the Abby spp. result. TRICHOMONAS VAGINALIS (TV), TMA NOT DETECTED NOT DETECTED [facility] C TRAC RNA NOT DETECTED NOT DETECTED [facility] N.GONORRHOEAE RNA, TMA NOT DETECTED NOT DETECTED [facility] Comment: For additional information, please refer to https://education.Partnered/faq/KKU542 (This link is being provided for information/ educational purposes only.) Test Performed at: [facility] [id number] [phone] Kristopher Harrell MD Genital SPECIMEN FROM VAGINA / Unknown 02/17/2023 2:08 PM CDT 02/18/2023 3:54 AM CDT Supriya BANDA MICROBIOLOGY - GENERAL ORDERABLE S Final Result Performing Organization Address City/State/[facility] Co de Phone Number [facility] [phone] [facility] [address] [phone] from Last 3 Months or Most Recently Relevant to Health Maintenance Insurance [facility] MEDICAID [facility] MEDICAID Care Teams Cellophane Bath Mixer Relationship Specialty Start Date End Date Tatiana Barahona MD [address] [phone] PCP - General Family Practice 08/17/16
--- OUTSIDE RECORDS SUMMARY | 2025-10-07 12:34 | XMS_ITS | Encounter Summary ---
[facility] Address [address] Patrick: Epic Prelude ADT [place] [id number] Care Team Providers Care Lasting Machine Operator Hand Method Name Role Phone Tatiana Barahona MD Primary Care Provider Encounter Details Date Type Department Care Team (Latest Contact Info) Description 10/05/2025 Travel Social History Tobacco Use Types Packs/Day Years [...] worry about transportation for future doctor visits, corn picker medication, etc.? No 2024 Housing Stability [...] on file Legal Sex Female 12:59 PM HOG KILLER Gender Identity Not on file Sexual Orientation Not on file documented as of this encounter Plan of Treatment Upcoming Encounters Date Type Department Care Team (Late st Contact Info) Description 10/20/2025 3:00 PM HOG KILLER Office Visit [facility] [place] [address] [facility] [place] [phone] January, ART PSYCHOTHERAPIST [address] [phone] documented as of this encounter Visit Diagnoses Not on filedocumented in this encounter Care Teams Lasting Machine Operator Hand Method Relationship Specialty Start Date End Date Tatiana Barahona MD [address] [id number] PCP - General Family Practice 08/17/16 documented as of this encounter
[2025-10-07 12:36] VITALS: BP 91/58; PULSE 79; RESP 16; TEMP 36.3; O2SAT 99; BMI 29.9
--- NOTE | 2025-10-07 12:51 | ED_ITS ---
HPI - Ear Problem General: Chief complaint: Ear Stated complaint: L ear pain Time Seen by Provider: 10/07/25 12:47 Source: patient Mode of arrival: ambulatory Limitations: no limitations History of Present Illness: 20-year-old female states she has been h aving left ear pain it has been going on for the last 2 days. States pains been very sharp in nature rates it a 7 out of 10 she denies any drainage denies any fevers she denies any worse or improving factors. Associated symptoms: Reports ear or mastoid pain Related Data Previous Rx's ?Medication ?Instructions ?Recorded ondansetron 4 mg disintegrating 4 mg PO BID PRN nausea and 02/03/22 tablet vomiting #12 tabs cephalexin 500 mg capsule 500 mg PO TID 7 days #21 cap s 10/07/25 naproxen 500 mg tablet (Naprosyn) 500 mg PO BID PRN pa in #20 tabs 10/07/25 Allergies Allergy/AdvReac Type Severity Reaction Status Date / Time Penicillins Allergy ALGY-Swell Verified 10/07/25 12:42 Lip/Tongue/Throat Review of Systems ENMT: Reports: ear or mastoid pain [facility] ED PFSH: Medical History No pertinent family history Surgical History No pertinent past surgical history Social History Smoking and tobacco/nicotine status: never used tobacco/nicotine Physical Exam Const: COMMON NORMALS: no acute distress, patient oriented x3 and healthy appearing HENMT: COMMON NORMALS: normocephalic and atraumatic HEAD & SCALP: normocephalic and atraumatic OTHER: Otitis media noted to the left ear Neck/C-Spine: COMMON NORMALS: full ROM and supple Chest: COMMONS NORMALS: normal inspection of the chest Resp: COMMON NORMALS: normal respiratory effort Cardio: COMMON NORMALS: regular rate, regular rhythm and No murmurs present (Cardio) RATE: regular rate RHYTHM: regular rhythm Extremity: COMMON NORMALS: normal to inspection and full ROM Neuro: COMMON NORMALS: patient oriented x3, moves all extremities and no focal motor deficits Psych: COMMON NORMALS: mental status grossly normal, Normal thought process present and cooperative THOUGHT PROCESS: Normal thought process present Skin: COMMON NORMALS: no rashes or lesions noted and no wounds GENERAL SKIN EXAM: no rashes or lesions noted Course Vital Signs: Vital signs: Vital Signs Temperature 97.4 F L 10/07/25 12:36 Pulse Rate 79 10/07/25 12:36 Respiratory Rate 16 10/07/25 12:36 Blood Pressure 91/58 10/07/25 12:36 Pulse Oximetry 99 10/07/25 12:36 Oxygen Delivery Me thod Room Air 10/07/25 12:36 MDM - Ear Medical Decision Making Patient presents here with left ear pain exam here is consistent with otitis media will start patient on Keflex she has no signs of mastoiditis no external she is return for worsening. Medical Records I reviewed the patient's medical records. No radiology studies performed this visit Discharge Plan Discharge Patient Disposition: Home Clinical Impression: Otitis media Condition: Stable Prescriptions: New cephalexin 500 mg capsule 500 mg PO TID 7 Days Qty: 21 0RF naproxen [Naprosyn] 500 mg tablet 500 mg PO BID PRN (Reason: pain) Qty: 20 0RF No Action ondansetron 4 mg tablet,disintegrating 4 mg PO BID PRN (Reason: nausea and vomiting) Qty: 12 0RF Discharge Orders: Discharge ED (Routine); Ordered 10/07/25 Ordered By: Sae Morris Referrals: , COIL [facility]APPER [Primary Care Provider, Nurse Practitioner] Discharge Diet: Advance as tolerated Discharge Activity: Resume usual activity Patient Instructions: Ear Infection (ED) Print Language: Salvadorean Coding Level of Care Code ED Road Conductor for Zbigniew Garcia
[2025-10-07] MEDS: HYDROcodone-acetaminophen 5-325 mg Tablet 1 TAB PO (13:13)
== END 2025-10-07 13:15 | disposition home or self-care (01) ==
PROVIDERS: Emergency Provider Emergency Medicine
DX: H66.92 Otitis media, unspecified, left ear (principal)
CPT/HCPCS: 99283; J9999